=== PATIENT | male | born 1970 | race Caucasian/White ===

== ENCOUNTER 2025-04-28 16:28 | Inpatient (IN) | payer MEDICAID, OTHER ==
[~2025-04-28] VITALS: Ht 182.9 cm; Wt 67.1 kg
[2025-04-28] MEDS ORDERED: CEFEPIME 2GM IN DEXT 5% 100ML IV ONE (16:45)
[2025-04-28] MEDS: SODIUM CHLORIDE 0.9% (SEPSIS BOLUS) IV ONE (17:44)
[2025-04-28] MEDS ORDERED: LORAZEPAM 2MG/ML INJ IV ONE ×2 (17:45→19:15)
[2025-04-28] MEDS: LORAZEPAM 2MG/ML UD SYRINGE IV SCH (17:47)
[2025-04-28 17:52] LABS: BASOPHILS % 0.5 % (0.0-2.0); EOSINOPHILS % 3.9 % (0.0-5.0); HEMATOCRIT. 35.3 % (42.0-52.0); HEMOGLOBIN. 11.8 g/dL (14.0-18.0); LYMPHOCYTES % 18.3 % (20.0-50.0); MEAN CORPUSCULAR HEMOGLOBIN 30.2 pg (28.0-32.0); MEAN CORPUSCULAR HGB CONC 33.5 g/dL (31.0-37.0); MEAN CORPUSCULAR VOLUME 90.1 fL (80.0-94.0); MEAN PLATELET VOLUME 8.4 fl (7.4-10.4); MONOCYTES % 7.3 % (2.0-8.0); PLATELET 484 x1000/uL (130-400); RED BLOOD CELL COUNT 3.91 mill/uL (4.7-6.1); RED CELL DISTRIBUTION WIDTH 14.7 % (11.6-14.6); WHITE BLOOD COUNT 13.4 x1000/uL (4.5-11.0)
[2025-04-28] MEDS: CEFEPIME 2GM/100ML 100 ML IV NR (17:53)
[2025-04-28 18:00] LABS: CARBON DIOXIDE 25 mEq/L (21-32); CHLORIDE 103 mEq/L (98-107); POTASSIUM 4.4 mEq/L (3.5-5.1); SODIUM 141 mEq/L (136-145)
[2025-04-28 18:01] LABS: CALCIUM 10.5 mg/dL (8.7-10.4)
[2025-04-28 18:03] LABS: PROTHROMBIN TIME 11.1 sec (9.6-11.0)
[2025-04-28 18:06] LABS: CREATININE 0.7 mg/dL (0.6-1.3); GLUCOSE 100 mg/dL (70-105); TROPONIN I HIGH SENSITIVITY 12 ng/L (3.0-53); UREA NITROGEN BLOOD 18 mg/dL (9-23)
[2025-04-28 18:07] LABS: ALANINE AMINOTRANSFERASE 60 IU/L (10-49); ASPARTATE AMINOTRANSFERASE 30 IU/L (<34); LACTATE DEHYDROGENASE 133 IU/L (120-246)
[2025-04-28 18:08] LABS: ALBUMIN 4.7 g/dL (3.2-4.8); BILIRUBIN DIRECT < 0.1 mg/dL (<=3.0); BILIRUBIN TOTAL 0.3 mg/dL (0.1-1.0); CREATINE KINASE 99 IU/L (46-171); PROTEIN TOTAL 7.7 g/dL (6.0-8.3)
[2025-04-28 18:18] LABS: LACTIC ACID 5.1 mmol/L (0.4-2.0)
[2025-04-28] MEDS: VANCOMYCIN 1G PREMIX 200 ML IV ONE (18:58)
[2025-04-28] MEDS: LORAZEPAM 2MG/ML UD SYRINGE IV NR (19:29)
[2025-04-28] MEDS ORDERED: DEXTROSE 50% WATER 50ML SYRINGE IV PRN (21:45)
[2025-04-28] MEDS ORDERED: ACETAMINOPHEN 650MG SUPP PR PRN (21:45)
[2025-04-28] MEDS ORDERED: MAGNESIUM/ALUMINUM HYDROXIDE/SIMETHICONE 30ML UDC NG PRN (21:45)
[2025-04-28] MEDS ORDERED: GUAIFENESIN 200MG/10ML SUGAR FREE UDC NG PRN (21:45)
[2025-04-28] MEDS ORDERED: CLONIDINE 0.1MG TABLET NG PRN (21:45)
[2025-04-28] MEDS ORDERED: ONDANSETRON HCL 4MG/2ML INJ IV PRN (21:45)
[2025-04-28] MEDS ORDERED: IPRATROPIUM/ALBUTEROL 0.5-3(2.5)MG/3ML NEB HHN PRN (21:45)
[2025-04-28 21:50] VITALS: PULSE 109; RESP 20; TEMP 36.7; O2SAT 96
[2025-04-28 22:30] VITALS: BP 132/57; PULSE 109; RESP 16; RESP 20; TEMP 36.7; O2SAT 96
[2025-04-28] MEDS: DEXT 5%/0.45% NACL 1000ML 1,000 ML IV SCH (23:57)
[2025-04-29] VITALS: BP 130/62; PULSE 105; RESP 18; TEMP 37; O2SAT 97
[2025-04-29] MEDS ORDERED: ATOR40TA70 PO (00:19)
[2025-04-29] MEDS ORDERED: [UNRECOGNIZED DRUG - CODE] (00:19)
[2025-04-29] MEDS ORDERED: TICA90TA PO (00:19)
[2025-04-29] MEDS ORDERED: [UNRECOGNIZED DRUG - CODE] (00:19)
[2025-04-29] MEDS ORDERED: CLOB2.5O2 (00:19)
[2025-04-29] MEDS ORDERED: COLL30OI TP (01:20)
[2025-04-29] MEDS ORDERED: DOXY100T2 PO (01:20)
[2025-04-29] MEDS ORDERED: LACO10SO12 (01:20)
[2025-04-29] MEDS ORDERED: METH-773 PO (01:20)
[2025-04-29 03:09] LABS: CLARITY URINE CLOUDY (CLEAR); COLOR URINE YELLOW (YELLOW); GLUCOSE URINE NEGATIVE (NEGATIVE); KETONES URINE NEGATIVE (NEGATIVE); LEUKOCYTE ESTERASE URINE 3+ (NEGATIVE); NITRITE URINE POSITIVE (NEGATIVE); OCCULT BLOOD URINE 3+ (NEGATIVE); PH URINE 8.5 (4.5-8.0); PROTEIN URINE 1+ (NEGATIVE); SPECIFIC GRAVITY URINE 1.028 (1.005-1.030); UROBILINOGEN URINE 0.2 E.U./dL (0.2-1.0)
[2025-04-29 03:33] LABS: RBC URINE TNTC /hpf (0-2); WBC URINE 15-25 /hpf (0-2)
[2025-04-29 03:34] LABS: SQUAMOUS EPITHELIAL CELL URINE NONE SEEN /lpf (RARE/1+)
[2025-04-29 03:35] LABS: BACTERIA URINE 2+
[2025-04-29 04:00] VITALS: BP 133/79; PULSE 105; RESP 20; TEMP 36.4; O2SAT 99
[2025-04-29 06:25] LABS: CHLORIDE 104 mEq/L (98-107); POTASSIUM 3.9 mEq/L (3.5-5.1); SODIUM 139 mEq/L (136-145)
[2025-04-29 06:26] LABS: CALCIUM 9.4 mg/dL (8.7-10.4); CARBON DIOXIDE 25 mEq/L (21-32)
[2025-04-29] MEDS: VANCOMYCIN 750MG PREMIX 150 ML IV SCH (06:26)
[2025-04-29 06:31] LABS: CREATININE 0.6 mg/dL (0.6-1.3); GLUCOSE 109 mg/dL (70-105); TRIGLYCERIDE 165 mg/dL (0-150); UREA NITROGEN BLOOD 11 mg/dL (9-23)
[2025-04-29 06:32] LABS: CREATINE KINASE 114 IU/L (46-171); LDL CHOLESTEROL 74 mg/dL (5-100)
[2025-04-29 06:33] LABS: CHOLESTEROL 126 mg/dL (<200); HDL CHOLESTEROL 27 mg/dL (>55); PHOSPHORUS 3.8 mg/dL (2.5-4.9)
[2025-04-29 06:35] LABS: FOLIC ACID (FOLATE) SERUM > 20.00 ng/mL (>5.38); THYROID STIMULATING HORMONE 1.46 uIU/mL (0.55-4.78); VITAMIN B12 SERUM 1081 pg/mL (211-911)
[2025-04-29] MEDS ORDERED: IOHEXOL-300 100 ML BOTTLE ONE (07:01)
[2025-04-29 08:00] VITALS: BP 92/62; PULSE 110; RESP 18; TEMP 37.2; O2SAT 100
[2025-04-29] MEDS: LEVETIRACETAM 500MG PREMIX 100ML IV SCH (08:26)
[2025-04-29] MEDS ORDERED: CEFEPIME 1GM PREMIX 50ML IV SCH (09:00)
[2025-04-29] MEDS: BLOOD SUGAR DIAGNOSTIC STRIP TEST SCH (09:00)
[2025-04-29] MEDS ORDERED: CEFEPIME HCL 1000MG VIAL IM SCH (09:00)
[2025-04-29] MEDS: PANTOPRAZOLE SODIUM 40 MG/VIAL IV NR (09:11)
[2025-04-29 10:00] LABS: BASOPHILS % 0.9 % (0.0-2.0); EOSINOPHILS % 5.5 % (0.0-5.0); HEMATOCRIT. 32.1 % (42.0-52.0); HEMOGLOBIN. 10.6 g/dL (14.0-18.0); LYMPHOCYTES % 19.2 % (20.0-50.0); MEAN CORPUSCULAR HEMOGLOBIN 30.6 pg (28.0-32.0); MEAN CORPUSCULAR HGB CONC 32.9 g/dL (31.0-37.0); MEAN CORPUSCULAR VOLUME 93.1 fL (80.0-94.0); MEAN PLATELET VOLUME 8.3 fl (7.4-10.4); NEUTROPHILS % 64.4 % (40.0-76.0); PLATELET 415 x1000/uL (130-400); RED BLOOD CELL COUNT 3.44 mill/uL (4.7-6.1); RED CELL DISTRIBUTION WIDTH 14.1 % (11.6-14.6); WHITE BLOOD COUNT 9.1 x1000/uL (4.5-11.0)
[2025-04-29] MEDS: CEFTRIAXONE 2GM/50ML 50 ML IV SCH (10:29)
[2025-04-29] MEDS: ENOXAPARIN 40MG/0.4ML SYR SUBCUT SCH (11:44)
[2025-04-29 12:26] VITALS: BP 114/87; PULSE 100; RESP 18; TEMP 36; O2SAT 97
[2025-04-29] MEDS ORDERED: PIPERACILLIN/TAZO 3.375G/50ML 50 ML IV SCH (14:00)
[2025-04-29] MEDS: LORAZEPAM 2MG/ML UD SYRINGE IV PRN (14:29)
[2025-04-29 16:44] VITALS: BP 127/77; PULSE 101; RESP 18; TEMP 37.2; O2SAT 95
[2025-04-29] MEDS ORDERED: *PATIENT'S OWN MEDICATION STORAGE XX SCH (18:00)
[2025-04-29] MEDS ORDERED: NON FORMULARY MED XX SCH (18:00)
[2025-04-29 20:00] VITALS: BP 143/93; PULSE 101; RESP 18; TEMP 36.5; O2SAT 97
[2025-04-29] MEDS: METHOCARBAMOL 500MG TABLET PO PRN (20:20)
[2025-04-29] MEDS ORDERED: TICAGRELOR 90 MG TABLET PO SCH (21:00)
[2025-04-29] MEDS ORDERED: METHOCARBAMOL 500MG TABLET PO SCH (21:00)
[2025-04-29] MEDS: CLOBAZAM 2.5 MG/ML GT SCH (21:00)
[2025-04-29] MEDS: ATORVASTATIN CALCIUM 40MG TABLET PO SCH (21:25)
[2025-04-29] MEDS: TICAGRELOR 90 MG TABLET PO SCH (21:47)
[2025-04-30] VITALS (7 sets, daily range): BP systolic 105–136; BP diastolic 61–75; PULSE 71–98; RESP 18–20; TEMP 36.3–37.5; O2SAT 95–98
[2025-04-30 09:52] LABS: CARBON DIOXIDE 25 mEq/L (21-32); CHLORIDE 103 mEq/L (98-107); POTASSIUM 3.1 mEq/L (3.5-5.1); SODIUM 140 mEq/L (136-145)
[2025-04-30 09:53] LABS: BASOPHILS % 0.7 % (0.0-2.0); CALCIUM 9.3 mg/dL (8.7-10.4); HEMATOCRIT. 28.9 % (42.0-52.0); LYMPHOCYTES % 12.9 % (20.0-50.0); MEAN CORPUSCULAR HEMOGLOBIN 30.7 pg (28.0-32.0); MEAN CORPUSCULAR HGB CONC 34.5 g/dL (31.0-37.0); MEAN PLATELET VOLUME 8.5 fl (7.4-10.4); MONOCYTES % 9.3 % (2.0-8.0); NEUTROPHILS % 72.1 % (40.0-76.0); PLATELET 369 x1000/uL (130-400); RED BLOOD CELL COUNT 3.25 mill/uL (4.7-6.1); RED CELL DISTRIBUTION WIDTH 13.9 % (11.6-14.6); WHITE BLOOD COUNT 7.3 x1000/uL (4.5-11.0)
[2025-04-30 09:58] LABS: CREATININE 0.5 mg/dL (0.6-1.3); GLUCOSE 117 mg/dL (70-105); UREA NITROGEN BLOOD 6 mg/dL (9-23)
[2025-04-30] MEDS: IPRATROPIUM/ALBUTEROL 0.5-3(2.5)MG/3ML NEB HHN SCH (12:44)
[2025-04-30] MEDS: MAGNESIUM 2 G PREMIX 50 ML IV SCH (18:30)
[2025-04-30] MEDS: POTASSIUM CHLORIDE 20MEQ/PACKET PO SCH (18:36)
[2025-05-01] VITALS (7 sets, daily range): BP systolic 107–125; BP diastolic 48–74; PULSE 80–94; RESP 16–20; TEMP 36.4–36.6; O2SAT 96–100
[2025-05-01 00:40] LABS: CLARITY URINE CLEAR (CLEAR); COLOR URINE YELLOW (YELLOW); GLUCOSE URINE NEGATIVE (NEGATIVE); KETONES URINE TRACE (NEGATIVE); LEUKOCYTE ESTERASE URINE 3+ (NEGATIVE); NITRITE URINE POSITIVE (NEGATIVE); OCCULT BLOOD URINE 2+ (NEGATIVE); PH URINE 7.5 (4.5-8.0); PROTEIN URINE NEGATIVE (NEGATIVE); SPECIFIC GRAVITY URINE 1.012 (1.005-1.030); UROBILINOGEN URINE 0.2 E.U./dL (0.2-1.0)
[2025-05-01 03:49] LABS: BACTERIA URINE 2+; SQUAMOUS EPITHELIAL CELL URINE NONE SEEN /lpf (RARE/1+)
[2025-05-01 07:54] LABS: HEMATOCRIT 31.4 % (42.0-52.0); HEMOGLOBIN 10.7 g/dL (14.0-18.0); MEAN CORPUSCULAR HEMOGLOBIN 30.5 pg (28.0-32.0); MEAN CORPUSCULAR HGB CONC 34.1 g/dL (31.0-37.0); MEAN CORPUSCULAR VOLUME 89.5 fL (80.0-94.0); PLATELET 387 x1000/uL (130-400); RED CELL DISTRIBUTION WIDTH 14.1 % (11.6-14.6); WHITE BLOOD COUNT 5.6 x1000/uL (4.5-11.0)
[2025-05-01 08:01] LABS: CHLORIDE 106 mEq/L (98-107); SODIUM 143 mEq/L (136-145)
[2025-05-01 08:02] LABS: CALCIUM 9.1 mg/dL (8.7-10.4); CARBON DIOXIDE 24 mEq/L (21-32)
[2025-05-01 08:07] LABS: CREATININE 0.6 mg/dL (0.6-1.3); GLUCOSE 101 mg/dL (70-105)
[2025-05-01 08:08] LABS: UREA NITROGEN BLOOD 5 mg/dL (9-23)
[2025-05-01 08:21] LABS: POTASSIUM 2.8 mEq/L (3.5-5.1)
[2025-05-01] MEDS: POTASSIUM CHLORIDE 20MEQ TABLET SR PO SCH (10:29)
[2025-05-01] MEDS: KCL 20MEQ/100ML PREMIX 250 ML IV SCH (12:17)
[2025-05-02] VITALS (7 sets, daily range): BP systolic 101–121; BP diastolic 52–77; PULSE 76–99; RESP 18–20; TEMP 35.8–37.2; O2SAT 95–99
[2025-05-02 07:11] LABS: CHLORIDE 109 mEq/L (98-107); POTASSIUM 4.1 mEq/L (3.5-5.1); SODIUM 143 mEq/L (136-145)
[2025-05-02 07:12] LABS: CALCIUM 9.1 mg/dL (8.7-10.4); CARBON DIOXIDE 23 mEq/L (21-32)
[2025-05-02 07:17] LABS: CREATININE 0.6 mg/dL (0.6-1.3); GLUCOSE 102 mg/dL (70-105); UREA NITROGEN BLOOD 7 mg/dL (9-23)
[2025-05-02 07:21] LABS: BASOPHILS % 1.2 % (0.0-2.0); EOSINOPHILS % 5.8 % (0.0-5.0); HEMATOCRIT. 30.8 % (42.0-52.0); HEMOGLOBIN. 10.3 g/dL (14.0-18.0); LYMPHOCYTES % 25.1 % (20.0-50.0); MEAN CORPUSCULAR HEMOGLOBIN 30.6 pg (28.0-32.0); MEAN CORPUSCULAR HGB CONC 33.5 g/dL (31.0-37.0); MEAN CORPUSCULAR VOLUME 91.3 fL (80.0-94.0); MEAN PLATELET VOLUME 8.5 fl (7.4-10.4); NEUTROPHILS % 57.9 % (40.0-76.0); PLATELET 346 x1000/uL (130-400); RED BLOOD CELL COUNT 3.38 mill/uL (4.7-6.1); RED CELL DISTRIBUTION WIDTH 14.3 % (11.6-14.6); WHITE BLOOD COUNT 6.1 x1000/uL (4.5-11.0)
[2025-05-02] MEDS: LORAZEPAM 2MG/ML UD SYRINGE IV NR (20:29)
[2025-05-03] VITALS: BP 117/65; PULSE 89; RESP 18; TEMP 36.9; O2SAT 96
[2025-05-03] MEDS ORDERED: LORAZEPAM 0.5MG TABLET PO NR (01:45)
[2025-05-03] MEDS: HALOPERIDOL LACTATE 5MG/ML VIAL IM NR (02:20)
[2025-05-03 04:00] VITALS: BP 121/68; PULSE 84; RESP 20; TEMP 37.1; O2SAT 97
[2025-05-03 06:46] LABS: CHLORIDE 105 mEq/L (98-107); SODIUM 142 mEq/L (136-145)
[2025-05-03 06:47] LABS: CALCIUM 9.8 mg/dL (8.7-10.4); CARBON DIOXIDE 24 mEq/L (21-32)
[2025-05-03 06:52] LABS: CREATININE 0.6 mg/dL (0.6-1.3); GLUCOSE 88 mg/dL (70-105); UREA NITROGEN BLOOD < 5 mg/dL (9-23)
[2025-05-03 08:49] VITALS: BP 134/72; PULSE 86; RESP 18; TEMP 37.1; O2SAT 97
[2025-05-03] MEDS: POTASSIUM CHLORIDE 20MEQ/PACKET PO NR (11:41)
[2025-05-03 12:28] VITALS: BP 119/58; PULSE 80; RESP 18; TEMP 37.1; O2SAT 98
[2025-05-03 16:00] VITALS: BP 124/72; PULSE 82; RESP 18; TEMP 36.7; O2SAT 100
[2025-05-03] MEDS: LEVOFLOXACIN 500MG PREMIX 100 ML IV SCH (18:00)
[2025-05-03 20:00] VITALS: BP 110/66; PULSE 90; RESP 18; TEMP 37.1; O2SAT 96
[2025-05-03] MEDS ORDERED: LEVO-65 MT (20:40)
[2025-05-03] MEDS: LEVOFLOXACIN 500MG TABLET PO SCH (21:18)
[2025-05-04] VITALS: BP 128/79; PULSE 91; RESP 17; TEMP 36.9; O2SAT 98
[2025-05-04 04:00] VITALS: BP 118/74; PULSE 89; RESP 18; TEMP 36.8; O2SAT 95
[2025-05-04 08:00] VITALS: BP 117/62; PULSE 87; RESP 18; TEMP 36.4; O2SAT 98
[2025-05-04 11:48] VITALS: BP 117/62; PULSE 87; TEMP 97.8; O2SAT 99
[2025-05-04 12:00] VITALS: BP 114/66; PULSE 85; RESP 18; TEMP 36.4; O2SAT 96
[2025-05-04 20:00] VITALS: BP 120/77; PULSE 82; RESP 18; TEMP 36.6; O2SAT 100
[2025-05-04] MEDS: LORAZEPAM 1MG TABLET PO SCH (21:01)
== END 2025-05-04 21:30 | DRG 466 ==
LOC: ER 16:28 → EDBEDREQ 17:21 → 7WST 20:24 → CMPBEDREQ 20:24 → ENRESERV 21:46 → 8EST 05-03 12:56
PROVIDERS: ADMIT Hospitalist; ATTEND Hospitalist
DX: T83.518A Infection and inflammatory reaction due to other urinary catheter, initial encounter (principal); A41.52 Sepsis due to Pseudomonas; J96.20 Acute and chronic respiratory failure, unspecified whether with hypoxia or hypercapnia; G93.41 Metabolic encephalopathy; E44.0 Moderate protein-calorie malnutrition; G93.1 Anoxic brain damage, not elsewhere classified; Z86.74 Personal history of sudden cardiac arrest; G40.909 Epilepsy, unspecified, not intractable, without status epilepticus; I25.10 Atherosclerotic heart disease of native coronary artery without angina pectoris; R13.12 Dysphagia, oropharyngeal phase; E83.42 Hypomagnesemia; E87.6 Hypokalemia; N39.0 Urinary tract infection, site not specified; D75.839 Thrombocytosis, unspecified; F17.210 Nicotine dependence, cigarettes, uncomplicated; J43.0 Unilateral pulmonary emphysema [MacLeod's syndrome]; Z68.20 Body mass index [BMI] 20.0-20.9, adult; J44.9 Chronic obstructive pulmonary disease, unspecified; R65.20 Severe sepsis without septic shock; Z79.02 Long term (current) use of antithrombotics/antiplatelets; Z79.899 Other long term (current) drug therapy; I25.2 Old myocardial infarction; Z93.0 Tracheostomy status; Z88.0 Allergy status to penicillin; Y73.8 Miscellaneous gastroenterology and urology devices associated with adverse incidents, not elsewhere classified; Y92.89 Other specified places as the place of occurrence of the external cause
CPT/HCPCS: 36415; 71045; 71260; 74230; 80048; 80061; 80076; 81003; 82306; 82550; 82607; 82746; 82962; 83036; 83605; 83615; 83735; 83880; 84100; 84145; 84443; 84484; 85025; 85027; 86850; 86900; 87077; 87186; 92610; 92611; 93005; 93970; 94070; 94640; 94664; 94760; 96365; 96367; 96375; 96376; 97162; 97166; 97168; 98960; 99291; A4606; J0692; J0696; J1630; J1650; J1953; J1956; J2060; J2470; J3370; J3475; J7030; J7060; Q9967; J8499